=== PATIENT | male | born 1990 | race African-American/Black ===

== ENCOUNTER 2021-07-21 11:34 | Emergency (ER) | payer MEDICAID ==
[~2021-07-21] VITALS: Ht 177.8 cm; Wt 68.0 kg
[2021-07-21 12:04] VITALS: BP 141/59
== END 2021-07-21 16:03 ==
LOC: ER 11:34
DX: Z04.6 Encounter for general psychiatric examination, requested by authority (principal); F17.210 Nicotine dependence, cigarettes, uncomplicated
CPT/HCPCS: 70450